=== PATIENT | female | born 1975 | race Caucasian/White ===

== ENCOUNTER → 2024-02-15 | Outpatient (CLI) | payer BC ==
[2024-02-18 13:48] LABS: HPV HIGH RISK BY TMA Not Detected; HPV SOURCE Cervical/Vag
== END ==
LOC: LAB 13:48 → LAB SHORT 13:48
PROVIDERS: Obstetrics & Gynecology
DX: Z01.419 Encounter for gynecological examination (general) (routine) without abnormal findings (principal)
CPT/HCPCS: 87624; G0123